=== PATIENT | male | born 1980 | race Caucasian/White ===

== ENCOUNTER 2017-06-05 04:15 | Emergency (ER) | payer SELFPAY ==
[~2017-06-05] VITALS: Ht 165.1 cm; Wt 81.4 kg
[2017-06-05 04:28] VITALS: BP 136/99
[2017-06-05 04:31] VITALS: BP 136/99
--- NOTE | 2017-06-05 04:32 | NUR ---
37 Y/O M W/C/O SORETHROAT X 5 DAYS. PT DENIES ANY FEVER OR CHILLS. NO S/S OF RESP DISTRESS NOTED. ER MADE AWARE.
--- NOTE | 2017-06-05 04:37 | NUR ---
Leonor hardy in EDM - 06/05/17 at 0516 by CORRIE PATIENT ELOPED FROM FACILITY. DISCHARGE INSTRUCTIONS NOT GIVEN TO PATIENT. DR. BONE NOTIFIED.
--- NOTE | 2017-06-05 04:37 | NUR ---
PATIENT LEFT WITHOUT BEING SEEN BY DR. BONE. NO FURTHER CARE PROVIDED FOR PATIENT.
== END 2017-06-05 04:37 | disposition left against medical advice (07) ==
LOC: MED 04:15
DX: J02.9 Acute pharyngitis, unspecified (principal); Z53.21 Procedure and treatment not carried out due to patient leaving prior to being seen by health care provider

== ENCOUNTER 2020-04-20 19:09 | Emergency (ER) | payer MEDICAID ==
[~2020-04-20] VITALS: Ht 165.1 cm; Wt 78.0 kg
[2020-04-20 19:21] VITALS: BP 132/94
--- NOTE | 2020-04-20 19:24 | NUR ---
PT AMBULATED TO BED 06 WITH STEADY GAIT.
--- NOTE | 2020-04-20 19:29 | NUR ---
40 Y/O MALE C/O RLQ ABD PAIN XTUESDAY, PT STATES 10/10 SHARP PAIN, WORST WITH MOVEMENT. -NAUSEA,VOMITING. +DIARRAHEA 3 TIMES TODAY. ABD SOFT, TENDER TO TOUCH. SKIN WARM AND DRY. PT STATES "IT FEELS LIKE AN OPEN WOUND INSIDE" MHX: APPENDECTOMY NKA
[2020-04-20] MEDS ORDERED: NACL 0.9% 1,000 ML IV SCH (19:55)
[2020-04-20] MEDS ORDERED: KETOROLAC 30 MG/ML VIAL IVP ONE (19:55)
[2020-04-20] MEDS ORDERED: ONDANSETRON 4 MG/2 ML VIAL IVP ONE (19:55)
--- NOTE | 2020-04-20 20:01 | NUR ---
ERMD AT BEDSIDE EVALUATING PT
[2020-04-20 20:21] LABS: BASOPHILS % (AUTO) 0.4 % (0.0-2.0); EOSINOPHILS # (AUTO) 0.1 K/uL (0-0.4); EOSINOPHILS % (AUTO) 1.3 % (0.0-4.0); HEMOGLOBIN 15.6 g/dL (12.0-18.0); LYMPHOCYTES # (AUTO) 1.3 K/uL (2.0-11.5); LYMPHOCYTES % (AUTO) 11.8 % (20.5-51.1); MEAN CORPUSCULAR HEMOGLOBIN 30 pg (27-31); MEAN CORPUSCULAR HGB CONC 34 g/dL (33-37); MEAN CORPUSCULAR VOLUME 88.1 fL (80-94); MONOCYTES # (AUTO) 1.3 K/uL (0.8-1.0); MONOCYTES % (AUTO) 11.5 % (1.7-9.3); NEUTROPHILS # (AUTO) 8.5 K/uL (1.8-7.7); PLATELET COUNT (AUTO) 335 K/uL (140-450); RED BLOOD CELL COUNT(AUTO) 5.22 MIL/uL (4.20-6.10); RED CELL DISTRIBUTION WIDTH 12.8 % (11.6-13.7); WHITE BLOOD COUNT (AUTO) 11.3 K/uL (4.8-10.8)
--- NOTE | 2020-04-20 20:26 | NUR ---
ULTRASOUND AT BEDSIDE
[2020-04-20 20:35] LABS: ALBUMIN 3.1 g/dL (3.4-5.0); ANION GAP 14.8 (8-16); CARBON DIOXIDE 26.3 mmol/L (21-32); CREATININE 1.2 mg/dL (0.6-1.3); POTASSIUM 4.1 mmol/L (3.5-5.1)
--- NOTE | 2020-04-20 21:17 | NUR ---
URINE COLLECTED AND SENT TO LAB
[2020-04-20 21:37] LABS: APPEARANCE,URINE SL CLOUDY (CLEAR); BILIRUBIN,URINE NEGATIVE (NEGATIVE); BLOOD, URINE NEGATIVE (NEGATIVE); COLOR,URINE YELLOW (YELLOW); LEUKOCYTE ESTERASE ,URINE NEGATIVE (NEGATIVE); NITRITE, URINE NEGATIVE (NEGATIVE); UGLUCOSE NEGATIVE (NEGATIVE)
[2020-04-20] MEDS ORDERED: MORPHINE SULFATE 4 MG/ML SYR IVP ONE (22:10)
--- NOTE | 2020-04-20 22:35 | NUR ---
PT'S MOM CALLED, UPDATED ON PT STATUS
[2020-04-20] MEDS ORDERED: cefTRIAXone 1,000 MG VIAL ONE (23:34)
[2020-04-21 00:40] VITALS: BP 107/68
--- NOTE | 2020-04-21 00:40 | NUR ---
Patient discharged with v/s stable. Written and verbal after care instructions given and explained. Patient alert, oriented and verbalized understanding of instructions. Ambulatory with steady gait. All questions addressed prior to discharge. ID band removed. Patient advised to follow up with PMD. Rx of AUGMENTIN AND NORCO given. Patient educated on indication of medication including possible reaction and side effects. Opportunity to ask questions provided and answered.
--- NOTE | 2020-04-24 00:56 | NUR ---
late entry--- s/w primary nurse, as follows; Nano end time: 1457
== END 2020-04-21 00:40 | disposition home or self-care (01) ==
LOC: MED 19:09
DX: K80.50 Calculus of bile duct without cholangitis or cholecystitis without obstruction (principal); R10.11 Right upper quadrant pain; J45.909 Unspecified asthma, uncomplicated; Z90.49 Acquired absence of other specified parts of digestive tract
CPT/HCPCS: 36415; 76705; 80053; 81001; 81003; 83690; 85025; 96361; 96365; 96375; 99284; J0696; J1885; J2270; J2405; J7030

== ENCOUNTER 2020-07-16 04:30 | Emergency (ER) | payer MEDICAID ==
[~2020-07-16] VITALS: Ht 165.1 cm; Wt 78.9 kg
[2020-07-16 04:35] VITALS: BP 136/77
--- NOTE | 2020-07-16 04:40 | NUR ---
PT TAKEN TO ER BED 3
--- NOTE | 2020-07-16 04:42 | NUR ---
40 Y/O MALE C/O RT SIDED ABD PAIN - STARTING LAST NIGHT AND GETTING PROGRESSIVELY WORSE. X3 EPISODES OF VOMIT. PT STATES 8/10 SHARP LOWER RIGHT QUADRANT PAIN. PMH: GALLSTONE, APPENDECTOMY NKA
--- NOTE | 2020-07-16 04:42 | NUR ---
DR PEREZ AT BEDSIDE EXAMINING PT
[2020-07-16] MEDS ORDERED: KETOROLAC 30 MG/ML VIAL IM ONE (04:50)
[2020-07-16] MEDS ORDERED: DICYCLOMINE HCL LIQUID 20 MG, ALUMINUM HYD/MAG/SIMETHICONE 30 ML, LIDOCAINE VISCOUS 2% ... PO ONE ×3 (04:50)
[2020-07-16] MEDS ORDERED: ALUMINUM HYD/MAG/SIMETHICONE 30 ML UDC ONE (04:52)
[2020-07-16] MEDS ORDERED: DICYCLOMINE HCL LIQUID 10 MG/5 ML UDC ONE (04:52)
[2020-07-16] MEDS ORDERED: LIDOCAINE VISCOUS 2% 20 ML UDC ONE (04:52)
--- NOTE | 2020-07-16 05:25 | NUR ---
LABS DRAWN AND SENT TO LAB
[2020-07-16 05:46] LABS: BARBITURATE, URINE NEGATIVE ng/ml (NEG <=200); BENZODIAZEPINE, URINE NEGATIVE ng/mL (NEG <=200)
[2020-07-16 05:47] LABS: CANNABINOID, URINE NEGATIVE ng/mL (NEG <=50); COCAINE, URINE NEGATIVE ng/mL (NEG <=300); OPIATE, URINE NEGATIVE ng/mL (NEG <=2000); PHENCYCLIDINE SCREEN,URINE NEGATIVE ng/mL (NEG <=25)
[2020-07-16 05:55] LABS: ALBUMIN 3.7 g/dL (3.4-5.0); ANION GAP 10.4 (8-16); CARBON DIOXIDE 28.2 mmol/L (21-32); CREATININE 1.2 mg/dL (0.6-1.3); POTASSIUM 3.6 mmol/L (3.5-5.1)
[2020-07-16 06:11] VITALS: BP 136/77
--- NOTE | 2020-07-16 06:11 | NUR ---
Patient discharged with v/s stable. Written and verbal after care instructions given and explained. Patient alert, oriented and verbalized understanding of instructions. Ambulatory with steady gait. All questions addressed prior to discharge. ID band removed. Patient advised to follow up with PMD. Rx of MYLANTA given. Patient educated on indication of medication including possible reaction and side effects. Opportunity to ask questions provided and answered.
== END 2020-07-16 06:11 | disposition home or self-care (01) ==
LOC: MED 04:30
DX: R10.11 Right upper quadrant pain (principal); Z90.49 Acquired absence of other specified parts of digestive tract
CPT/HCPCS: 36415; 80053; 80305; 83690; 96372; 99283; J1885

== ENCOUNTER 2020-07-18 00:49 | Emergency (ER) | payer MEDICAID ==
[~2020-07-18] VITALS: Ht 165.1 cm; Wt 77.1 kg
[2020-07-18] MEDS ORDERED: ASPIRIN 325 MG TAB PO ONE (01:10)
[2020-07-18] MEDS ORDERED: NACL 0.9% 1,000 ML IV ONE (01:10)
[2020-07-18] MEDS ORDERED: NITROGLYCERIN 0.4 MG TAB SL ONE (01:10)
--- NOTE | 2020-07-18 01:26 | NUR ---
40 Y/O MALE PRESENTS TO ER WITH C/O MIDSTERNAL CHEST PAIN X 1 DAY. 12/15 PAIN W/O RADIATION. ALSO C/O HEADACHE, VISION CHANGES. DENIES N/V/D, SOB, FEVER, CHILLS, JAW PAIN, LEFT ARM PAIN, ABDOMINAL PAIN. DENIES ETOH/DRUG USE. VSS, R/R EQUAL, AND UNLABORED. CAP REFILL <3 SECS. SIDE RAIL X1, BED IN LOW POSITION, WILL CONTINUE TO MONITOR. NKDA DENIES PMH
[2020-07-18 01:27] LABS: BASOPHILS # (AUTO) 0.1 K/uL (0.00-0.22); BASOPHILS % (AUTO) 1.3 % (0.0-2.0); EOSINOPHILS # (AUTO) 0.2 K/uL (0-0.4); EOSINOPHILS % (AUTO) 4.5 % (0.0-4.0); HEMATOCRIT 43.4 % (36-52); HEMOGLOBIN 14.6 g/dL (12.0-18.0); LYMPHOCYTES # (AUTO) 1.2 K/uL (2.0-11.5); LYMPHOCYTES % (AUTO) 22.5 % (20.5-51.1); MEAN CORPUSCULAR HEMOGLOBIN 29 pg (27-31); MEAN CORPUSCULAR HGB CONC 34 g/dL (33-37); MEAN CORPUSCULAR VOLUME 87.1 fL (80-94); MONOCYTES # (AUTO) 0.6 K/uL (0.8-1.0); MONOCYTES % (AUTO) 10.7 % (1.7-9.3); NEUTROPHILS # (AUTO) 3.4 K/uL (1.8-7.7); PLATELET COUNT (AUTO) 312 K/uL (140-450); RED BLOOD CELL COUNT(AUTO) 4.99 MIL/uL (4.20-6.10); RED CELL DISTRIBUTION WIDTH 13.9 % (11.6-13.7); WHITE BLOOD COUNT (AUTO) 5.5 K/uL (4.8-10.8)
--- NOTE | 2020-07-18 01:40 | NUR ---
PATIENT ELOPED FROM FACILITY. DISCHARGE INSTRUCTIONS NOT GIVEN TO PATIENT. DR. MELISSA NOTIFIED.
--- NOTE | 2020-07-18 01:40 | NUR ---
PT REMOVED 20G IV FROM RAC BEFORE ELOPING.
[2020-07-18 02:06] LABS: ALBUMIN 3.6 g/dL (3.4-5.0); ANION GAP 16.1 (8-16); CARBON DIOXIDE 22.3 mmol/L (21-32); CREATININE 0.9 mg/dL (0.6-1.3); POTASSIUM 3.4 mmol/L (3.5-5.1); TOTAL BILIRUBIN 0.6 mg/dL (0.0-1.0)
--- NOTE | 2020-07-19 20:43 | NUR ---
LATE ENTRY--- 0.9% NS BOLUS DISCONTINUED AT 0140
== END 2020-07-18 01:40 | disposition left against medical advice (07) ==
LOC: MED 00:49
DX: R07.9 Chest pain, unspecified (principal); R06.02 Shortness of breath; R00.2 Palpitations
CPT/HCPCS: 36415; 71045; 80053; 84484; 85025; 93005; 99285; J7030

== ENCOUNTER 2020-08-29 18:53 | Emergency (ER) | payer MEDICAID ==
[~2020-08-29] VITALS: Ht 165.1 cm; Wt 81.6 kg
[2020-08-29 18:59] VITALS: BP 119/65
--- NOTE | 2020-08-29 19:01 | NUR ---
DR CROWDER AT BEDSIDE REMOVING IBETH DE LA GARZA
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
--- NOTE | 2020-08-29 19:57 | NUR ---
Patient discharged with v/s stable. Written and verbal after care instructions given and explained. Patient verbalized understanding. Ambulatory with steady gait. All questions addressed prior to discharge. Advised to follow up with PMD.
[2020-08-29 20:03] VITALS: BP 119/65
== END 2020-08-29 19:57 | disposition home or self-care (01) ==
LOC: MED 18:53
DX: S30.851A Superficial foreign body of abdominal wall, initial encounter (principal); W45.8XXA Other foreign body or object entering through skin, initial encounter; Y93.89 Activity, other specified; Y92.89 Other specified places as the place of occurrence of the external cause; Y99.8 Other external cause status
CPT/HCPCS: 93005; 99284